=== PATIENT | female | born 1980 | race Caucasian/White ===

== ENCOUNTER 2016-11-24 11:24 | Emergency (ER) | payer BC ==
[2016-11-24 11:47] VITALS: BP 124/76
--- NOTE | 2016-11-24 13:02 | UC ---
Ear Complaint HPI - HPI Summary HPI Summary: While cleaning L ear 11/19/16 felt sharp pain and stopped. Denies inserting swab any deeper than normal, stopped as soon as it got uncomfortable. The next day noticed blood on ear swab and increasing pain with muffled hearing. Saw PCP and was rx cortisporin 1 drop TID. Pt states it hasn't been helping, still in pain and dizzy. - History of Current Complaint Chief Complaint: UCEar Stated Complaint: EAR COMPLAINT Time Seen by Provider: 11/24/16 12:23 Hx Obtained From: Patient Hx Last Menstrual Period: hysterectomy ?: No Onset/Duration: Sudden Onset Severity Initially: Mild Severity Currently: Mild Aggravating Factors: FB Associated Signs/Symptoms: Positive: Hearing Loss - Allergies/Home Medications Allergies/Adverse Reactions: Allergies Allergy/AdvReac Type Severity Reaction Status Date / Time No Known Allergies Allergy Verified 11/24/16 11:47 Home Medications: Home Medications Levothyroxine TAB* [Synthroid 25 MCG TAB*] 2 tab PO DAILY 11/24/16 [History Confirmed 11/24/16] PMH/Surg Hx/FS Hx/Imm Hx Endocrine History Of: Reports: Thyroid Disease - HYPER Denies: Diabetes Cardiovascular History Of: Denies: Cardiac Disorders, Hypertension, Congestive Heart Failure Respiratory History Of: Denies: COPD, Asthma GI/ History Of: Denies: Ulcer, Renal Disease Cancer History Of: Denies: Breast Cancer - Surgical History Surgical History: Yes Surgery Procedure, Year, and Place: Hysterectomy (WITH BOWEL CYST REMOVED), tonsilectomy, ectopic - Family History Known Family History: Positive: None Negative: Blood Disorder - Social History Alcohol Use: None Substance Use Type: None Smoking Status (MU): Former Smoker Amount Used/How Often: 2011 Review of Systems Constitutional: Negative Skin: Negative Eyes: Negative ENT: Ear Ache Respiratory: Negative Cardiovascular: Negative Gastrointestinal: Negative Genitourinary: Negative Motor: Negative Neurovascular: Negative Musculoskeletal: Negative Neurological: Negative Psychological: Negative All Other Systems Reviewed And Are Negative: Yes Physical Exam Triage Information Reviewed: Yes Appearance: Well-Appearing, No Pain Distress, Obese Vital Signs: Initial Vital Signs Temp 98.1 F 11/24/16 11:41 Pulse 65 11/24/16 11:41 Resp 16 11/24/16 11:41 BP 124/76 11/24/16 11:41 Pulse Ox 99 11/24/16 11:41 Vital Signs Reviewed: Yes Eye Exam: Normal Eyes: Positive: Conjunctiva Clear ENT: Positive: Pharynx normal, TMs normal - hemorrhagic lesion L TM, no active bleeding, no visible hole. Negative: Nasal congestion, TM bulging Ear Complaint Course/Dx - Differential Dx/Diagnosis Provider Diagnoses: L TM rupture Discharge - Discharge Plan Condition: Stable Disposition: HOME Prescriptions: Ciproflox/Dexameth OTIC.SUSP* [Ciprodex OTIC.SUSP*] 4 drop LEFT EAR BID #1 btl Patient Education Materials: Ruptured Eardrum (ED) Forms: *Work Release Referrals: Jarek Shepherd MD [Medical Doctor] - 1 Week Additional Instructions: As we discussed, it is possible that you ruptured your ear drum with your swab, but you likely would have felt very uncomfortable before pushing that hard. I recommend you see an ear, nose, throat specialist to make sure you do not have any concerning problems in your ear drum.
== END 2016-11-24 13:01 | disposition home or self-care (01) ==
LOC: UCEAST 11:24
DX: H72.92 Unspecified perforation of tympanic membrane, left ear (principal); E05.90 Thyrotoxicosis, unspecified without thyrotoxic crisis or storm; E66.9 Obesity, unspecified; Z87.891 Personal history of nicotine dependence
CPT/HCPCS: 99212; G0463

== ENCOUNTER 2017-05-13 11:27 | Emergency (ER) | payer BC ==
--- NOTE | 2017-05-13 11:34 | UC ---
Cardiac HPI - HPI Summary HPI Summary: 36 YEAR OLD FEMALE PRESENTS WITH COMPLAINS OF LEFT SIDED CHEST PAIN WITH RADIATION DOWN HER LEFT ARM. THE PAIN IS ONGOING AND NOTHING MAKES IT BETTER. - History of Current Complaint Stated Complaint: CHEST PAIN Time Seen by Provider: 05/13/17 11:33 Hx Obtained From: Patient Hx Last Menstrual Period: hysterectomy Onset/Duration: Lasting Days Initial Severity: Worse Since: - THIS MORNING Current Severity: Moderate Chest Pain Location: Left Anterior Aggravating: Position Alleviating: Position Associated Signs & Symptoms: Positive: Negative - Risk Factors Pulmonary Embolism Risk Factors: Negative Cardiac Risk Factors: Negative Atrial Fibrillation: Negative TAD Risk Factors: Negative - Allergy/Home Medications Allergies/Adverse Reactions: Allergies Allergy/AdvReac Type Severity Reaction Status Date / Time No Known Allergies Allergy Verified 11/24/16 11:47 PMH/Surg Hx/FS Hx/Imm Hx Previously Healthy: Yes - Surgical History Surgical History: Yes Surgery Procedure, Year, and Place: Hysterectomy (WITH BOWEL CYST REMOVED), tonsilectomy, ectopic - Family History Known Family History: Positive: None Negative: Blood Disorder - Social History Alcohol Use: None Substance Use Type: None Smoking Status (MU): Former Smoker Amount Used/How Often: 2011 Review of Systems Constitutional: Negative Skin: Negative Eyes: Negative ENT: Negative Respiratory: Negative Cardiovascular: Chest Pain Gastrointestinal: Negative Genitourinary: Negative Motor: Negative Neurovascular: Negative Musculoskeletal: Negative Neurological: Negative Psychological: Negative All Other Systems Reviewed And Are Negative: Yes Physical Exam Triage Information Reviewed: Yes Vital Signs Reviewed: Yes Eye Exam: Normal ENT Exam: Normal Dental Exam: Normal Neck exam: Normal Neck: Positive: 1 Respiratory Exam: Normal Cardiovascular Exam: Normal Abdominal Exam: Normal Musculoskeletal Exam: Normal Neurological Exam: Normal Psychological Exam: Normal Skin Exam: Normal - Clinical Impression Provider Diagnoses: chest pain Discharge - Discharge Plan Condition: Guarded Disposition: AGAINST MEDICAL ADVICE Patient Education Materials: Chest Pain (ED) Referrals: No Primary Care Phys,NOPCP [Medical Doctor] - Additional Instructions: PLEASE TO TO GO TO THE ER BY EMS FOR CHEST PAIN . PATIENT REFUSED AMBULANCE AND SIGNED OUT AMA.
[2017-05-13 11:49] VITALS: BP 150/88
== END 2017-05-13 11:49 | disposition left against medical advice (07) ==
LOC: UCEAST 11:27
DX: R07.9 Chest pain, unspecified (principal); Z53.21 Procedure and treatment not carried out due to patient leaving prior to being seen by health care provider
CPT/HCPCS: 93005; 99212; G0463

== ENCOUNTER 2017-05-13 12:04 | Emergency (ER) | payer BC ==
[2017-05-13] MEDS ORDERED: Aspirin Low Dose CHEW TAB* 81 MG PO ONE (12:10)
[2017-05-13 12:39] LABS: Hematocrit 44 % (35-47); Hemoglobin 14.7 g/dl (12.0-16.0); Mean Corpuscular HGB Conc 34 g/dl (31-36); Mean Corpuscular Hemoglobin 30 pg (27-31); Mean Corpuscular Volume 90 fL (80-97); Mean Platelet Volume 9 um3 (7.4-10.4); Red Blood Count 4.85 10^6/ul (4.0-5.4); Red Cell Distribution Width 14 % (10.5-15)
[2017-05-13] MEDS ORDERED: Pantoprazole IV* 40 MG IV ONE (12:59)
[2017-05-13] MEDS ORDERED: Lidocaine 2% VISCOUS* 15 ML UDC PO ONE (13:00)
[2017-05-13] MEDS ORDERED: Al Hydrox/Mg Hydrox/Simet LIQ* 30 ML UDC PO ONE (13:00)
--- NOTE | 2017-05-13 13:00 | RAD ---
Indication: Shortness of breath started today; chest pain for one week. Comparison: January 05, 2015 CT abdomen. Technique: Upright AP 1235 hours Report: Obese body habitus. Grossly clear lungs and pleural spaces. Negative for pneumothorax. The heart, pulmonary vasculature, and mediastinal contours are unremarkable. IMPRESSION: No evidence for acute intrathoracic disease.
[2017-05-13 13:07] LABS: Albumin 4.6 g/dL (3.2-5.2); BUN/Creatinine Ratio 14.7 (8-20); Calcium 9.6 mg/dL (8.6-10.3); EGFR African American 72.6 (>60); EGFR Non-African American 56.5 (>60); Globulin 3.1 g/dL (2-4); Total Bilirubin 0.6 mg/dL (0.2-1.0); Total Protein 7.7 g/dL (6.4-8.9)
--- NOTE | 2017-05-13 14:15 | ED ---
Galindo Rivera Alfonso, scribed for Felipa Pruett MD on 05/13/17 at 1232 . HPI Chest Pain - HPI Summary HPI Summary: This patient is a 36 year old F presenting to [facility] accompanied by family with a chief complaint of intermittent CP since one week ago. The patient rates the pain 5/10 in severity. Symptoms aggravated by nothing, Symptoms alleviated by nothing. Patient reports SOB, lightheadedness, and dizziness. Patient denies cough, fever, and chills. - History of Current Complaint Chief Complaint: EDChestPainROMI Time Seen by Provider: 05/13/17 12:10 Hx Obtained From: Patient Hx Last Menstrual Period: hyster Onset/Duration: Started Weeks Ago - 1, Still Present Timing: Constant Initial Severity: Moderate Current Severity: Moderate Pain Intensity: 5 Pain Scale Used: 0-10 Numeric Aggravating Factor(s): Nothing Alleviating Factor(s): Nothing Associated Signs and Symptoms: Positive: Other: - SOB, lightheadedness, and dizziness. Patient denies cough, fever, and chills. - Allergy/Home Medications Allergies/Adverse Reactions: Allergies Allergy/AdvReac Type Severity Reaction Status Date / Time No Known Allergies Allergy Verified 11/24/16 11:47 PMH/Surg Hx/FS Hx/Imm Hx Endocrine/Hematology History: Reports: Hx Thyroid Disease - HYPER Denies: Hx Diabetes Cardiovascular History: Denies: Hx Congestive Heart Failure, Hx Hypertension Respiratory History: Denies: Hx Asthma, Hx Chronic Obstructive Pulmonary Disease (COPD) GI History: Denies: Hx Ulcer History: Denies: Hx Renal Disease - Cancer History Hx Chemotherapy: No Hx Radiation Therapy: No - Surgical History Surgery Procedure, Year, and Place: Hysterectomy (WITH BOWEL CYST REMOVED), tonsilectomy, ectopic Infectious Disease History: No Infectious Disease History: Denies: Hx Clostridium Difficile, Hx Hepatitis, Hx Human Immunodeficiency Virus (HIV), Hx of Known/Suspected MRSA, Hx Shingles, Hx Tuberculosis, Hx Known/ Suspected VRE, Hx Known/Suspected VRSA, History Other Infectious Disease, Traveled Outside the [place] in Last 30 Days - Family History Known Family History: Positive: Other - Cancer Negative: Cardiac Disease, Blood Disorder - Social History Alcohol Use: None Substance Use Type: Reports: None Smoking Status (MU): Former Smoker Amount Used/How Often: 2011 Review of Systems Negative: Fever, Chills Positive: Chest Pain Positive: Shortness Of Breath. Negative: Cough Neurological: Other - lightheadedness, and dizziness All Other Systems Reviewed And Are Negative: Yes Physical Exam Triage Information Reviewed: Yes Vital Signs On Initial Exam: Initial Vitals Temp Pulse Resp BP Pulse Ox 97.7 F 65 20 123/72 99 05/13/17 12:06 05/13/17 12:06 05/13/17 12:06 05/13/17 12:06 05/13/17 12:06 Vital Signs Reviewed: Yes Appearance: Positive: Well-Appearing, No Pain Distress, Obese Skin: Positive: Warm, Skin Color Reflects Adequate Perfusion, Dry Eyes: Positive: EOMI, MIHAI ENT: Positive: Pharynx normal, TMs normal Neck: Positive: Supple, Nontender Respiratory/Lung Sounds: Positive: Clear to Auscultation, Breath Sounds Present. Negative: Rales, Rhonchi, Wheezes Cardiovascular: Positive: RRR, Other - No gallop. Negative: Murmur, Rub Abdomen Description: Positive: Nontender, Soft, Other: - No rebound. Negative: Distended, Guarding Bowel Sounds: Positive: Present Musculoskeletal: Positive: Strength/ROM Intact. Negative: Edema Left, Edema Right Neurological: Positive: Sensory/Motor Intact, Alert, Oriented to Person Place, Time, CN Intact II-III - 2-12 Psychiatric: Positive: Affect/Mood Appropriate Diagnostics - Vital Signs Vital Signs Temp Pulse Resp BP Pulse Ox 05/13/17 12:06 97.7 F 65 20 123/72 99 - Laboratory Lab Results: Lab Results 05/13/17 05/13/17 Range/Units 12:21 12:21 WBC 6.0 (3.5-10.8) 10^3/ul RBC 4.85 (4.0-5.4) 10^6/ul Hgb 14.7 (12.0-16.0) g/dl Hct 44 (35-47) % MCV 90 (80-97) fL MCH 30 (27-31) pg MCHC 34 (31-36) g/dl RDW 14 (10.5-15) % Plt Count 245 (150-450) 10^3/ul MPV 9 (7.4-10.4) um3 Neut % (Auto) 59.9 (38-83) % Lymph % (Auto) 25.7 (25-47) % [place] % (Auto) 12.4 H (1-9) % Eos % (Auto) 1.1 (0-6) % Baso % (Auto) 0.9 (0-2) % Absolute Neuts (auto) 3.6 (1.5-7.7) 10^3/ul Absolute Lymphs (auto) 1.5 (1.0-4.8) 10^3/ul Absolute Monos (auto) 0.7 (0-0.8) 10^3/ul Absolute Eos (auto) 0.1 (0-0.6) 10^3/ul Absolute Basos (auto) 0.1 (0-0.2) 10^3/ul Absolute Nucleated RBC 0 10^3/ul Nucleated RBC % 0 Sodium 136 (133-145) mmol/L Potassium 4.0 (3.5-5.0) mmol/L Chloride 104 (101-111) mmol/L Carbon Dioxide 26 (22-32) mmol/L Anion Gap 6 (2-11) mmol/L BUN 16 (6-24) mg/dL Creatinine 1.09 H (0.51-0.95) mg/dL Est GFR ( Amer) 72.6 (>60) Est GFR (Non-Af Amer) 56.5 (>60) BUN/Creatinine Ratio 14.7 (8-20) Glucose 95 (70-100) mg/dL Calcium 9.6 (8.6-10.3) mg/dL Total Bilirubin 0.60 (0.2-1.0) mg/dL AST 24 (13-39) U/L ALT 39 (7-52) U/L Alkaline Phosphatase 45 (34-104) U/L Troponin I 0.00 (<0.04) ng/mL Total Protein 7.7 (6.4-8.9) g/dL Albumin 4.6 (3.2-5.2) g/dL Globulin 3.1 (2-4) g/dL Albumin/Globulin Ratio 1.5 (1-3) Result Diagrams: 05/13/17 12:21 05/13/17 12:21 Lab Statement: Any lab studies that have been ordered have been reviewed, and results considered in the medical decision making process. - Radiology CXR Radiology Interpretation Completed By: Radiologist - No evidence for acute intrathoracic disease. ED physician has reviewed this radiology report and agrees. - EKG 1224 Cardiac Rate: Bradycardia - BPM 58 EKG Rhythm: Sinus Bradycardia Ectopy: : PVCs EKG Interpretation: NAD Chest Pain Course/Dx - Course Course Of Treatment: 36 yo female without any PE risk or early CAD risk factors here with CP over the last week. Pt has a normal ekg and trop is neg as well as cxr, pt will be sent with PPI's as she has been eating badly lately as they are re-doing her kitchen ,she thinks she may have pulled a muscle - Diagnoses Provider Diagnoses: Chest pain Discharge - Discharge Plan Condition: Stable Disposition: HOME Prescriptions: Pantoprazole TAB (NF) [Protonix TAB (NF)] 20 mg PO DAILY #14 tab Patient Education Materials: Chest Pain (ED) Referrals: Jenny Durand MD [Primary Care Provider] - 3 Days Additional Instructions: RETURN TO THE EMERGENCY DEPARTMENT FOR CHANGING OR WORSENING SYMPTOMS. The documentation as recorded by the Galindo to Alfonso accurately reflects the service I personally performed and the decisions made by me, Felipa Pruett MD.
[2017-05-13 15:04] VITALS: BP 106/50
== END 2017-05-13 15:02 | disposition home or self-care (01) ==
LOC: ED 12:04
DX: R07.9 Chest pain, unspecified (principal); R06.02 Shortness of breath; R42 Dizziness and giddiness; Z87.891 Personal history of nicotine dependence
CPT/HCPCS: 36415; 71010; 80053; 84484; 85025; 93005; 99283; A9270-GY